=== PATIENT | female | born 1985 | race Caucasian/White ===

== ENCOUNTER 2020-11-07 07:11 | Inpatient (IN) | payer MEDICAID ==
--- NOTE | 2020-11-06 08:17 | PCM.LDHP ---
L&D History of Present Illness - General Date of Service: 11/07/20 Admit Problem/Dx: Admission Diagnosis/Problem Admission Diagnosis/Problem 11/06/20 08:04 Helga is a 35-year-old 4 para 2-0-1-2 white female scheduled to be admitted on the morning of 11/07/2020 at the 39-seventh weeks gestational age with an ILA of 11/11/2020 for induction of labor. Source of Information: Patient History Limitations: Reports: No Limitations - History of Present Illness Introduction:: Helga is a 35-year-old 4 para 2-0-1-2 white female scheduled to be admitted on the morning of 11/07/2020 at the 39-seventh weeks gestational age with an ILA of 11/11/2020 for induction of labor. The process and procedure of induction of labor, its risks, benefits and alternatives of care including allowing for natural onset of labor are all discussed with the patient. Because of potential weather conditions, potential road conditions and distance from the hospital patient is opting for induction of labor after 39 weeks. History: 4 para 2-0-1-2. Patient had menarche at age 14. Cycles somewhat irregular at 2240 days interval, duration 5 to 7 days. Positive hCG was 03/08/2020. LMP 02/07/2020. Past obstetric history includes the followin. Miscarriage 12/23/2000 at 6 weeks gestational age. 2. Female born 07/25/2002 at 40 weeks gestational age30 hours of labor6 pounds 13 ouncesNSVDepidural used in labord[place]ivered in [place] Jorge's name is Malathi. 3. Male infant born 10/14/2005 at 43 weeks gestational age by patient hours of labor8 pounds 5 ouncesNSVDepidural used in laborbaby [place] The patient has had AZEB-3 and is now status post cervical cone biopsy. Follow- up Pap smears have been essentially normal. course: Helga was initially seen very early in . She had an ultrasound that was done on 04/30/2020 at 11-6/7 weeks supporting her LMP dating. She had 2 follow-up ultrasounds on 06/06/2020 and 06/20/2020 which also supported her LMP and early ultrasound dating. The patient was seen on a very regular basis. Her weight gain during was from 181 pounds to 202 pounds for a 21 pound increase. Her vital signs remained stable and her fundal height growth was within acceptable limits. Patient is on buprenorphine for history of chronic pain for which she had taken high-dose opioids recently. She has been stable on the buprenorphine. She has attempted to decrease it. Presently is taking it 2 mg sublingual tabs per day in divided doses. Group B strep screen is positive. She is Rh- and has had RhoGam given on 08/30/2020. She is a current every day smoker but has cut down to less than a quarter of a pack per day. She desires epidural in labor and delivery. She plans to breast-feed. Prequel noninvasive screen done in April 2020 was negative for trisomy 21, 18 and 13. Tdap was given on 10/03/2020. She is rubella immune. Influenza vaccination was given on 08/02/2020. Laboratory testing in shows her blood to be a negative with a negative antibody screen. Patient did receive Rh immunoglobulin during . First yolande hemoglobin was 14.6 g/dL. Platelets were 300,000 at that time. Her rubella titer showed immunity. RPR was nonreactive. Urine culture showed E. coli and patient was treated at that time. Hepatitis B surface antigen and HIV assays were both negative. Chlamydia and gonorrhea tests were both negative. Diabetic screen at second trimester was 86. Her hemoglobin at that time was 12.8 and platelets were 283,000. RPR on 08/29/2020 was nonreactive and group B strep on 10/17/2020 was positive. Allergies: None Medications: 1. Buprenorphine HCl8-2 mg sublingual tablets daily used in divided doses 2. Multivitamin tablet daily Past medical history: 1. Remote history chronic opioid use for painnow controlled with buprenorphine and stable. 2. Miscarriage x1 3. Normal spontaneous vaginal delivery x2 4. History of AZEB-3status post LEEP 2018 Past surgical history: 1. Laparoscopic cholecystectomy 2006 2. [place] tooth extraction 2018 3. LEEP 2018[facility]. Family history: There is alive age 50 suffers from depression and memory problems. She is adopted. Father is secondary to motor vehicle accident. Maternal grandparents unknown as mother was adopted. Paternal grandmother is age 30 from cirrhosis of the liver. Paternal grandfather is alive and well at age 90. No family history of cancer, bleeding or blood clotting disorders, anesthesia or medication related issues or related problems. Social history: Patient is single. Her significant other is Jerry Jarrell. She lives in [place], [place]. She smokes less than 1/4 pack cigarettes per day. She does work part-time outside the home. She does not use any other alcohol or drugs. Review of systems: In general patient has no complaints. Been reported. Skin: Negative Lungs: No infectious symptoms or shortness of breath Cardiovascular: No chest pain or exercise intolerance Breasts: No lumps, changes in size, pain, dimpling, discharge or axillary or supraclavicular concerns. GI: Negative : Changes associated with . Musculoskeletal: Negative Neurological: Negative Sickle exam: In general the patient is well-developed, well-nourished, pleasant female of stated age in no acute distress. On last evaluation clinic on 10/31/2020 her blood pressure was 120/68. Her weight was 202 with a pregravid weight of 181. Her height is 5 feet 7. heart rate was 163. Fundal height was 6 cm. Skin is warm dry without lesions. HEENT, neck and back within normal limits. Lungs are clear with good breath sounds in all lung suazo. Cardiovascular exam shows regular and rhythm without murmurs. Breast exam done at first visit was within normal limits and is not repeated at this time. Abdomen is gravid with last fundal height at 36 cm. Baby in vertex presentation.. Genital per digital exam on 10/31/2020 shows cervix to be 2 cm dilated, 70% effaced, soft, mid position, -3.. Extremities and neurological exam are grossly within normal limits. H&P Review of Systems - Review of Systems: Review Of Systems: See Below L&D Exam - Exam Exam: See Below Problem List Initiated/Reviewed/Updated: Yes Assessment/Plan Comment:: 1. Helga is a 35-year-old 4 para 2-0-1-2 white female scheduled to be admitted on the morning of 11/07/2020 at the 39-seventh weeks gestational age with an ILA of 11/11/2020 for induction of labor. 2. Risk factors for the include history of buprenorphine therapy and treatment of remote history of opioid abuse, distance from the hospital, history of smoking, Rh- status, group B strep positive status, history of smoking, history of AZEB 3 status post LEEP 3. Patient desires epidural in labor delivery 4. Patient plans to breast-feed 5. Prequel noninvasive screen done early in was negative 6. Tdap and flu immunization given. Patient is rubella immune Plan: 1. Induction of labor on 11/07/2019 to consist of Pitocin initially followed by AROM augmentation. 2. Group B strep prophylaxis with ampicillin per protocol 3. Admission labs to consist of CBC, RPR and COVID-19 testing 4. Epidural per patient desire in labor and delivery 5. Patient is Rh-will give Rh immunoglobulin as indicated by blood type and Rh. 6. Support patient's breast-feeding decision. 7. Routine labor care.
[~2020-11-07 07:11] MED LIST: Bupivacaine 0.25% 10 ML SDV ONE
[2020-11-07] MEDS ORDERED: Sodium Chloride 0.9% 10 ML Syringe FLUSH PRN (07:25)
[2020-11-07] MEDS ORDERED: Ondansetron 4 MG/2 ML SDV IVPUSH PRN ×2 (07:25→07:51)
[2020-11-07] MEDS ORDERED: Nalbuphine 10 MG/1 ML Vial IVPUSH PRN (07:25)
[2020-11-07] MEDS ORDERED: Oxytocin/Lactated Ringers 10 UNIT/1,000 ML BAG IV SCH ×2 (07:30)
[2020-11-07] MEDS ORDERED: fentaNYL 100 MCG/2 ML SDV EPIDUR PRN (07:51)
[2020-11-07] MEDS ORDERED: ePHEDrine 50 MG/ML SDV IVPUSH PRN (07:51)
--- NOTE | 2020-11-07 07:57 | PCM.PREANE ---
Preanesthetic Assessment - Procedure Proposed Procedure: Epidural - Anesthesia/Transfusion/Family Hx Anesthesia History: Prior Anesthesia Without Reaction Family History of Anesthesia Reaction: No Transfusion History: No Prior Transfusion(s) Intubation History: Unknown - Review of Systems General: No Symptoms Pulmonary: No Symptoms (Smoker: 1/4ppd times 15 years) Cardiovascular: Palpitations (anxiety) Gastrointestinal: No Symptoms (GERD) Neurological: No Symptoms Other: Reports: None (History of chronic opiod use: on buprenorphine last dose 11/07/2020 04:30) - Physical Assessment NPO Status Date: 11/07/20 NPO Status Time: 06:40 Vital Signs: HR:79 Sat:99% Temp:98.6 Resp:16 B/P:124/71 Height: 1.7 m Weight: 91.626 kg ASA Class: 2 Mental Status: Alert & Oriented x3 Airway Class: Mallampati = 2 Dentition: Reports: Normal Dentition, Caries Thyro-Mental Finger Breadths: 3 Mouth Opening Finger Breadths: 3 ROM/Head Extension: Full Lungs: Clear to Auscultation, Normal Respiratory Effort Cardiovascular: Regular Rate, Regular Rhythm, No Murmurs - Lab Values: HGB: 12.4 Platelets: 243,000 All labs reviewed and noted and within acceptable ranges to proceed with epidural if desired. - Allergies Allergies/Adverse Reactions: Allergies Allergy/AdvReac Type Severity Reaction Status Date / Time No Known Allergies Allergy Verified 11/07/20 08:03 - Anesthesia Plan Pre-Op Medication Ordered: None, Other (buprenorphine: last dose:11/07/2020 04:30) - Acknowledgements Anesthesia Type Planned: Epidural Pt an Appropriate Candidate for the Planned Anesthesia: Yes Alternatives and Risks of Anesthesia Discussed w Pt/Guardian: Yes Pt/Guardian Understands and Agrees with Anesthesia Plan: Yes PreAnesthesia Questionnaire - HOME MEDS Home Medications: Home Meds Buprenorphine HCl/Naloxone HCl [Buprenorphin-Naloxon 8-2 mg Sl] 1 each SL DAILY 11/07/20 [History] Multivitamin 1 each PO DAILY 11/07/20 [History] - CURRENT (IN HOUSE) MEDS Current Meds: Current Medications Calcium Carbonate/Glycine (Tums) 1,000 mg PO Q2H PRN PRN Reason: Indigestion Ampicillin Sodium 2 gm/ Sodium (Chloride) 100 mls @ 200 mls/hr IV ONETIME ONE Stop: 11/07/20 07:54 Ampicillin Sodium 1 gm/ Sodium (Chloride) 100 mls @ 200 mls/hr IV Q4H JOCELYNE Oxytocin/Lactated Ringer's (Pitocin In Lr 10 Units/1,000 Ml) 10 unit in 1,000 mls @ 12 mls/hr IV TITRATE JOCELYNE; Protocol Oxytocin/Lactated Ringer's (Pitocin In Lr 10 Units/1,000 Ml) 10 unit in 1,000 mls @ 500 mls/hr IV .CONTINUOUS JOCELYNE Lactated Ringer's (Ringers, Lactated) 1,000 mls @ 100 mls/hr IV ASDIRECTED JOCELYNE Lidocaine HCl (Xylocaine 1%) 20 ml INJECT ONETIME ONE Stop: 11/07/20 07:26 Nalbuphine HCl (Nubain) 10 mg IVPUSH Q2H PRN PRN Reason: Pain Ondansetron HCl (Zofran) 4 mg IVPUSH Q4H PRN PRN Reason: Nausea/Vomiting Sodium Chloride (Saline Flush) 10 ml FLUSH ASDIRECTED PRN PRN Reason: Keep Vein Open
[2020-11-07] MEDS ORDERED: Bupivacaine/fentaNYL/NS 100 ML Bag EPIDUR SCH (08:00)
[2020-11-07] MEDS ORDERED: Lactated Ringers 1,000 ML ONE (08:02)
[2020-11-07] MEDS ORDERED: Ampicillin 2 GM AdvVial IV ONE (08:02)
[2020-11-07] MEDS ORDERED: Oxytocin/Lactated Ringers 10 UNIT/1,000 ML BAG IV ONE (08:02)
[2020-11-07] MEDS: Lactated Ringers 1,000 ML IV SCH ×3 (08:14→14:46)
[2020-11-07] MEDS ORDERED: Ampicillin 2 GM in Sodium Chloride 0.9% 100 ML IV ONE (08:30)
[2020-11-07] MEDS ORDERED: Lidocaine 1% 50 ML MDV INJECT ONE (09:00)
--- OUTSIDE RECORDS SUMMARY | 2020-11-07 09:45 | XMSREPORT ---
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.1) (D06.9) Encounter for supervision of normal (V22.1) (Z34.9 0) Dysuria in (646.80) (O26.899) Need for rhogam due to Rh negative mother (V07.2) (Z29.13) Allergies and Adverse Reactions No Known Drug Allergies (Allergy) Medications Buprenorphine HCl-Naloxone HCl - 8-2 MG Sublingual Tablet Sublingual; PLACE 2 TABS UNDER THE TONGUE DAILY Start: 01-Dec-2019 Quantity: 42 Refills: 0 Multi Vitamin Oral Tablet Refills: 0 Procedures History of Gallbladder Surgery Status: C ompleted History of Dilation and curettage Status : Completed Immunizations Tdap 0 On: 27-Aug-2017 Fluzone Quadrivalent 0.5 ML Intramuscular Suspension P refilled Syringe On: 02-Aug-2020 Lot #: [id number], [employer] Tdap 0 On: 03-Aug-2020 Family History No pertinent family history (V49.89) (Z78.9) Status: Active No pertinent family history (V49.89) (Z78.9) Status: Active Social History - Smokes tobacco daily Recorded: Plan of Treatment Hospital Referral Request Planned Goals not documented Results GROUP B STREP BY PCR Laboratory: [facility] Comments: Reason for Exam: Z34.90, 17-Oct-2020 10:45 GROUP B STREP BY PCR POSITIVE Range: NE GATIVE (above high threshold) Comments: Interpr etation: Presumptive for GBS colonization. Group B Streptococcus remains universally susceptible to Penicillin, Ampicillin, and Cefazolin. Resistance to Clindamycin and Er ythromycin c an occur. Please co ntact [facility] within 48 hours if Clindamycin and Erythromycin susceptibility testing is required.
--- OUTSIDE RECORDS SUMMARY | 2020-11-07 09:47 | XMSREPORT ---
:1985 Author Organization [facility] Address [address] [place] [address] Phone Reason For Referral No Reason for Referral was given. History Of Present Illness No HPI available. Assessments No Assessments available Plan of Care Name Dates Details Planned Observations Hospital Referral Request
[2020-11-07] MEDS: Calcium Carbonate 500 MG Tab.Chew PO PRN ×2 (10:09→16:15)
[2020-11-07] MEDS: Ampicillin 1 GM in Sodium Chloride 0.9% 100 ML IV SCH ×2 (12:05→16:01)
[2020-11-07] MEDS: Oxytocin/Lactated Ringers 20 UNIT/1,000 ML BAG IV SCH ×2 (12:41→18:06)
[2020-11-07] MEDS ORDERED: Nicotine 14 MG/24 Hr Patch TRDERM SCH (15:30)
--- NOTE | 2020-11-07 17:54 | PCM.SN.2 ---
- Free Text/Narrative Note: Delivery note: Helga is a 35-year-old 4 para 2-0-1-2 white female scheduled to be admitted on the morning of 11/07/2020 at the 39-seventh weeks gestational age with an ILA of 11/11/2020 for induction of labor. She was started on Pitocin augmentation to bring the head down against the cervix and after approximately 4 hours underwent AROM with resultant clear amniotic fluid. Labor intensified. She underwent epidural for analgesia. At 1727 hrs. on 11/07/2020 she delivered a viable, ivan, male with Apgars of 9 and 9 in a direct occiput anterior position over an intact perineum. The baby was placed on mom's abdomen. Nose and mouth were bulb suction and the baby was dried with warm blanket. Pitocin was increased to 500 cc an hour with routine concentration in order to facilitate increase in uterine tone and decrease likelihood of bleeding. He weighed 2830 g (6 pounds 3.8 ounces), had a length of 19.5 inches and had Apgars of 9 and 9. The umbilical cord was allowed to pulsate for approximately 3 minutes after which time it was clamped x2 and cut by the baby's father Jerry. The umbilical cord had 3 blood vessels. Cord blood was obtained. The perineum was evaluated and found to be intact. The placenta delivered intact in a Sanchez presentation at 1731 hrs. It appeared complete and was discarded per patient desire. Estimated blood loss was 200 cc. Patient plans to breast-feed. Condition: Good.
[2020-11-07] MEDS ORDERED: Docusate Sodium 100 MG Cap PO PRN (19:02)
[2020-11-07] MEDS ORDERED: Benzocaine/Menthol 20%-0.5% Spray 56 GM Canister TOP PRN (19:02)
[2020-11-07] MEDS ORDERED: Witch Hazel Medicated Pads 40/Jar TOP PRN (19:02)
[2020-11-07] MEDS ORDERED: Acetaminophen 325 MG Tab PO PRN (19:02)
[2020-11-07] MEDS: Ibuprofen 600 MG Tab PO PRN (20:29)
[2020-11-08] MEDS: BUPRENORPHINE SL SCH ×2 (01:40→10:47)
[2020-11-08] MEDS: NALOXONE SL SCH ×2 (01:40→10:47)
[2020-11-08] MEDS: Ibuprofen 600 MG Tab PO PRN (04:49)
--- NOTE | 2020-11-08 07:22 | PCM48HPAN ---
Post Anesthesia Note - EVALUATION WITHIN 48HRS OF ANESTHETIC Vital Signs in Normal Range: Yes Patient Participated in Evaluation: Yes Respiratory Function Stable: Yes Airway Patent: Yes Cardiovascular Function Stable: Yes Hydration Status Stable: Yes Pain Control Satisfactory: Yes Nausea and Vomiting Control Satisfactory: Yes Mental Status Recovered: Yes Vital Signs: Last Vital Signs Temp 36.8 C 11/08/20 03:00 Pulse 80 11/08/20 03:00 Resp 16 11/08/20 03:00 BP 124/66 11/08/20 03:00 Pulse Ox 99 11/08/20 03:00 - COMMENTS/OBSERVATIONS Free Text/Narrative:: no anesthesia complications noted
[2020-11-08] MEDS ORDERED: Prenatal Multivitamin with Calcium/Folic Acid/Iron Tab PO SCH (09:00)
--- NOTE | 2020-11-08 13:02 | PCM.DCSUM1 ---
Discharge Summary - Hospital Course Free Text/Narrative:: Helga is a 35-year-old 4 para 2-0-1-2 white female scheduled to be admitted on the morning of 11/07/2020 at the 39-seventh weeks gestational age with an ILA of 11/11/2020 for induction of labor. She was started on Pitocin augmentation to bring the head down against the cervix and after approximately 4 hours underwent AROM with resultant clear amniotic fluid. Labor intensified. She underwent epidural for analgesia. At 1727 hrs. on 11/07/2020 she delivered a viable, ivan, male with Apgars of 9 and 9 in a direct occiput anterior position over an intact perineum. The baby was placed on mom's abdomen. Nose and mouth were bulb suction and the baby was dried with warm blanket. Pitocin was increased to 500 cc an hour with routine concentration in order to facilitate increase in uterine tone and decrease likelihood of bleeding. He weighed 2830 g (6 pounds 3.8 ounces), had a length of 19.5 inches and had Apgars of 9 and 9. The umbilical cord was allowed to pulsate for approximately 3 minutes after which time it was clamped x2 and cut by the baby's father Jerry. The umbilical cord had 3 blood vessels. Cord blood was obtained. The perineum was evaluated and found to be intact. The placenta delivered intact in a Sanchez presentation at 1731 hrs. It appeared complete and was discarded per patient desire. Estimated blood loss was 200 cc. Patient plans to breast-feed. Firm patient is done well. She is nursing without problems, has minimal lochia and voiding without concerns. She is ambulating well. She has had cravings for tobacco. She has started on a nicotine patch and she is continued on her buprenorphine with same dose as predelivery. She is desiring discharge home. Condition: Good. Diagnosis: Stroke: No - Discharge Data Discharge Date: 11/08/20 Discharge Disposition: Home, Self-Care 01 Condition: Good - Referral to Home Health Primary Care Physician: Wesly Horn MD - Patient Instructions Diet: Regular Diet as Tolerated (Nursing diet with increased calories and calcium as recommended) Activity: As Tolerated (No intercourse or tampons until bleeding resolves) Driving: May Drive Today Showering/Bathing: May Shower (May take a bath) Notify Provider of: Fever, Increased Pain, Swelling and Redness, Nausea and/or Vomiting - Discharge Plan Home Medications: Home Meds Buprenorphine HCl/Naloxone HCl [Buprenorphin-Naloxon 8-2 mg Sl] 1 each SL BID 11/07/20 [History] Multivitamin 1 each PO DAILY 11/07/20 [History] Acetaminophen [Tylenol] 650 mg PO Q4H PRN tablet 11/08/20 [Rx] Docusate Sodium [Colace] 100 mg PO BID PRN cap 11/08/20 [Rx] Ibuprofen [Motrin] 600 mg PO Q4H PRN tablet 11/08/20 [Rx] Nicotine [Habitrol] 14 mg TRDERM DAILY patch 11/08/20 [Rx] mia Rita [Tucks] 1 pad TOP ASDIRECTED PRN pad 11/08/20 [Rx] Patient Handouts: Steps to Quit Smoking Referrals: Wesly Horn MD [Primary Care Provider] - (Return to clinic[facility]. Horn[address] [place] [address].) - Discharge Summary/Plan Comment DC Time >30 min.: No Discharge Summary/Plan Comment: Discharge instructions: 1. Discharge home 2. Diet, activity and follow-up discussed with patient. Recommend nursing diet with increased calories and calcium. 3. Precautions given concern increased pain, bleeding, temperature, signs/symptoms of DVT/PE. 4. Medications per home medication was printed, discussed with and given to the patient. 5. Return to clinic-Dr. Horn[facility] in 2 weeks. Diagnosis: 1. Term -delivered 2. Buprenorphine chronic maintenance therapy 3. History of smoking Condition: Good - Patient Data Vitals - Most Recent: Last Vital Signs Temp 36.7 C 11/08/20 07:40 Pulse 59 L 11/08/20 07:40 Resp 16 11/08/20 07:40 BP 116/68 11/08/20 07:40 Pulse Ox 100 11/08/20 07:40 Weight - Most Recent: 91.626 kg I&O - Last 24 hours: Intake & Output 11/07/20 11/08/20 11/08/20 22:59 06:59 14:59 Intake Total 4900 Output Total 825 Balance 4075 Lab Results - Last 24 hrs: Laboratory Results - last 24 hr 11/07/20 Range/Units 07:44 RPR Non-reactive (NONREACTIVE) Med Orders - Current: Current Medications Acetaminophen (Tylenol) 650 mg PO Q4H PRN PRN Reason: mild pain or fever Last Admin: 11/07/20 22:54 Dose: 650 mg Documented by: Benzocaine/Menthol (Dermoplast Pain Relief [place]) 0 gm TOP ASDIRECTED PRN PRN Reason: Perineal Comfort Measure Buprenorphine/Naloxone (Buprenorphine-Naloxone 8 Mg-2 Mg) 1 tab SL BID [facility] Last Admin: 11/08/20 10:47 Dose: Not Given Documented by: Docusate Sodium (Colace) 100 mg PO BID PRN PRN Reason: Constipation Last Admin: 11/07/20 20:31 Dose: 100 mg Documented by: Ibuprofen (Motrin) 600 mg PO Q4H PRN PRN Reason: Mild pain or fever Last Admin: 11/08/20 04:49 Dose: 600 mg Documented by: Miscellaneous Information (Remove Patch) 1 ea TRDERM DAILY [facility] Nicotine (Habitrol) 14 mg TRDERM DAILY [facility] Prenat Multivit/[place]/Iron/Folic Ac ( Plus Iron) 1 each PO DAILY [facility] Last Admin: 11/08/20 10:56 Dose: 1 each Documented by: Mia Terrell ([facility]) 1 pad TOP ASDIRECTED PRN PRN Reason: Perineal Comfort Measure Last Admin: 11/07/20 20:31 Dose: 1 pad Documented by: Discontinued Medications Ampicillin Sodium (Ampicillin) Confirm Administered Dose 2 gm IV .STK-MED ONE Stop: 11/07/20 08:03 Last Admin: 11/07/20 09:49 Dose: Not Given Documented by: Bupivacaine HCl (Sensorcaine-Mpf 0.25%) 10 ml .ROUTE .STK-MED ONE Stop: 11/07/20 00:01 Calcium Carbonate/Glycine (Tums) 1,000 mg PO Q2H PRN PRN Reason: Indigestion Last Admin: 11/07/20 16:15 Dose: 1,000 mg Documented by: Ephedrine Sulfate (Ephedrine Sulfate) 5 mg IVPUSH ASDIRECTED PRN PRN Reason: Hypotension Fentanyl (Sublimaze) 100 mcg EPIDUR Q3H PRN PRN Reason: Pain Last Admin: 11/07/20 14:00 Dose: 100 mcg Documented by: Fentanyl/Bupivacaine HCl (Fentanyl/Bupivacaine/Ns 2 Mcg-0.125% 100 Ml) 100 ml EPIDUR ASDIRECTED JOCELYNE Last Admin: 11/07/20 14:00 Dose: 100 ml Documented by: Ampicillin Sodium 2 gm/ Sodium (Chloride) 100 mls @ 200 mls/hr IV ONETIME ONE Stop: 11/07/20 08:59 Last Admin: 11/07/20 08:14 Dose: 200 mls/hr Documented by: Ampicillin Sodium 1 gm/ Sodium (Chloride) 100 mls @ 200 mls/hr IV Q4H JOCELYNE Last Admin: 11/07/20 16:01 Dose: 200 mls/hr Documented by: Oxytocin/Lactated Ringer's (Pitocin In Lr 10 Units/1,000 Ml) 10 unit in 1,000 mls @ 12 mls/hr IV TITRATE JOCELYNE; Protocol Last Titration: 11/07/20 13:40 Dose: 30 munits/min, 180 mls/hr Documented by: Oxytocin/Lactated Ringer's (Pitocin In Lr 10 Units/1,000 Ml) 10 unit in 1,000 mls @ 500 mls/hr IV .CONTINUOUS JOCELYNE Lactated Ringer's (Ringers, Lactated) 1,000 mls @ 100 mls/hr IV ASDIRECTED [facility] Last Admin: 11/07/20 14:46 Dose: 100 mls/hr Documented by: Lactated Ringer's (Ringers, Lactated) Confirm Administered Dose 1,000 mls @ as directed .ROUTE .STK-MED ONE Stop: 11/07/20 08:03 Last Admin: 11/07/20 09:49 Dose: Not Given Documented by: Oxytocin/Lactated Ringer's (Pitocin In Lr 10 Units/1,000 Ml) Confirm Administered Dose 10 unit in 1,000 mls @ as directed IV .STK-MED ONE Stop: 11/07/20 08:03 Last Admin: 11/07/20 09:49 Dose: Not Given Documented by: Oxytocin/Lactated Ringer's (Pitocin In Lr 20 Units/1,000 Ml) 20 unit in 1,000 mls @ 60 mls/hr IV TITRATE JOCELYNE; Protocol Last Admin: 11/07/20 18:06 Dose: 999 mls/hr Documented by: Lidocaine HCl (Xylocaine 1%) 20 ml INJECT ONETIME ONE Stop: 11/07/20 09:01 Last Admin: 11/07/20 19:01 Dose: Not Given Documented by: Miscellaneous Information (Remove Patch) 0 ea TRDERM DAILY [facility] Miscellaneous Medication (Phenylephrine 1 Mg/10 Ml-Ns) 1 mg IVPUSH ONETIME ONE Stop: 11/07/20 09:01 Last Admin: 11/07/20 19:01 Dose: Not Given Documented by: Nalbuphine HCl (Nubain) 10 mg IVPUSH Q2H PRN PRN Reason: Pain Nicotine (Habitrol) 14 mg TRDERM DAILY [facility] Last Admin: 11/07/20 15:38 Dose: 14 mg Documented by: Non-Formulary Medication (Buprenorphine Hcl/Naloxone Hcl [Buprenorphin-Naloxon 8-2 Mg Sl]) 1 each SL BID [facility] Ondansetron HCl (Zofran) 4 mg IVPUSH Q4H PRN PRN Reason: Nausea/Vomiting Ondansetron HCl (Zofran) 4 mg IVPUSH ONETIME PRN PRN Reason: Nausea/Vomiting Sodium Chloride (Saline Flush) 10 ml FLUSH ASDIRECTED PRN PRN Reason: Keep Vein Open
[2020-11-08] MEDS ORDERED: Nicotine 14 MG/24 Hr Patch TRDERM SCH (15:00)
[2020-11-09] MEDS ORDERED: Remove AND REPLACE NICOTINE Patch TRDERM SCH (09:00)
== END 2020-11-08 14:25 | disposition home or self-care (01) | DRG 807 ==
LOC: JD.OB 07:11 → EDSTATUS 13:55 → OBSVTOIN 17:27 → JD.OB 17:27
PROVIDERS: ADMIT Obstetrics & Gynecology; ATTEND Obstetrics & Gynecology
PROC: 10E0XZZ Delivery of Products of Conception, External Approach (ICD-10-PCS; principal; 2020-11-07)
PROC: 10907ZC Drainage of Amniotic Fluid, Therapeutic from Products of Conception, Via Natural or Artificial Opening (ICD-10-PCS; 2020-11-07)
PROC: 3E0R3BZ Introduction of Anesthetic Agent into Spinal Canal, Percutaneous Approach (ICD-10-PCS; 2020-11-07)
DX: O80 Encounter for full-term uncomplicated delivery (principal); Z37.0 Single live birth; Z3A.39 39 weeks gestation of pregnancy; Z20.822 Contact with and (suspected) exposure to COVID-19; Z87.891 Personal history of nicotine dependence
CPT/HCPCS: 01967; 36415; 51702; 59025; 59409; 80306; 85025; 86592; 86850; 86870; 86900; 86901; A9270-GY; J0290; J2590; J3010; J3490; J7120; U0002